=== PATIENT | female | born 1945 ===

== ENCOUNTER 2017-07-18 19:17 | Emergency (ER) | payer MEDICARE, OTHER ==
[2017-07-18 19:26] VITALS: BP 134/76
--- NOTE | 2017-07-18 20:20 | RAD ---
INDICATION: Left foot injury COMPARISON: None TECHNIQUE: AP, lateral, and oblique views were obtained. FINDINGS: There is no acute fracture. 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 There is an arcuate configuration of the tarsal navicular with findings most suggestive of a remote fracture. There is an old distal fifth metatarsal fracture There is a moderate-sized plantar calcaneal spur. There are mild hammertoe deformities. No additional findings. IMPRESSION: DEGENERATIVE AND POST TRAUMATIC CHANGES. NO ACUTE FINDINGS
--- NOTE | 2017-07-18 20:55 | ED ---
Lower Extremity - HPI Summary HPI Summary: 72F presents with left foot pain for three days. She denies any injury. She states it hurts when she walks and with deep palpations. She has history of gout normal in her first metatarsal but has not had an episode of gout since she was started on a new medication. She denies any swelling in her first metatarsal. She wonders if the gout has spread. She denies any numbness or tingling. She denies any fever or spreading redness. The area does not feel hot to touch. she states that it does not feel like gout. - History of Current Complaint Chief Complaint: EDExtremityLower Stated Complaint: LT FOOT PAIN/SWELLING Time Seen by Provider: 07/18/17 20:20 Pain Intensity: 3 - Allergies/Home Medications Allergies/Adverse Reactions: Allergies Allergy/AdvReac Type Severity Reaction Status Date / Time Allopurinol Allergy Congestion Verified 07/18/17 19:45 Indomethacin [From Indocin] Allergy Rash Verified 07/18/17 19:45 Lisinopril Allergy GI Upset Verified 07/18/17 19:45 Metoprolol Allergy Rash And Verified 07/18/17 19:46 Itching PMH/Surg Hx/FS Hx/Imm Hx Endocrine/Hematology History: Denies: Hx Anticoagulant Therapy Cardiovascular History: Reports: Hx Valvular Heart Disease Musculoskeletal History: Reports: Hx Gout - Cancer History Hx Chemotherapy: No Hx Radiation Therapy: No - Surgical History Surgery Procedure, Year, and Place: Aortic valve replacement Infectious Disease History: No Infectious Disease History: Denies: Traveled Outside the [place] in Last 30 Days - Family History Known Family History: Positive: Other - Colon [place] - Social History Alcohol Use: Occasionally Substance Use Type: Reports: None Smoking Status (MU): Former Smoker Review of Systems Negative: Fever Negative: Chest Pain Negative: Shortness Of Breath Positive: Myalgia - left foot pain All Other Systems Reviewed And Are Negative: Yes Physical Exam Triage Information Reviewed: Yes Vital Signs On Initial Exam: Initial Vitals Temp Pulse Resp BP Pulse Ox 97.9 F 77 16 134/76 99 07/18/17 19:23 07/18/17 19:23 07/18/17 19:23 07/18/17 19:23 07/18/17 19:23 Vital Signs Reviewed: Yes Appearance: Positive: Well-Appearing Skin: Positive: Warm, Dry Head/Face: Positive: Normal Head/Face Inspection Eyes: Positive: Normal, Conjunctiva Clear Respiratory/Lung Sounds: Positive: Clear to Auscultation, Breath Sounds Present Cardiovascular: Positive: Normal, RRR Musculoskeletal: Positive: Strength/ROM Intact - left foot, Other - good pulses , capillary refill<2 secs, tenderness over medial aspect of left foot near navicular bone, no erythema or wartmth to touch. Negative: Edema Left Neurological: Positive: Normal Psychiatric: Positive: Normal - Arlene Coma Scale Coma Scale Total: 15 Diagnostics - Vital Signs Vital Signs Temp Pulse Resp BP Pulse Ox 07/18/17 19:23 97.9 F 77 16 134/76 99 - Laboratory Lab Statement: Any lab studies that have been ordered have been reviewed, and results considered in the medical decision making process. - Radiology foot Xray Interpretation: Positive (See Comments) - mild first MTP joint osteoarthritis. There is an arcuate configuration of the tarsal navicular with findings most suggestive of a remote fracture. Radiology Interpretation Completed By: Radiologist Lower Extremity Course/Dx - Course Course Of Treatment: 72F presents with left foot pain for three days. She denies any injury. She states it hurts when she walks and with deep palpations. She has history of gout normal in her first metatarsal but has not had an episode of gout since she was started on a new medication. She denies any swelling in her first metatarsal. She wonders if the gout has spread. She denies any numbness or tingling. She denies any fever or spreading redness. The area does not feel hot to touch. she states that it does not feel like gout. on exam no erythema or warmth to area. tenderness over narvicular bone. xray shows remote fracture. believe pain is more likely from remote fracture rather than from gout. will have use post op shoe and follow up with primary. patient understand and agrees with plan. - Diagnoses Differential Diagnosis/HQI/PQRI: Positive: Fracture (Closed), Gout, Sprain Provider Diagnoses: Left foot pain Discharge - Discharge Plan Condition: Good Disposition: HOME Patient Education Materials: Foot Fracture in Adults (ED) Referrals: Garrett Gonzalez MD [Primary Care Provider] - Additional Instructions: It appears that you have a remote foot fracture in that area Wear post op shoe Ice, elevate Follow up with primary within 5 days Return to ED if develop any new or worsening symptoms
== END 2017-07-18 21:05 | disposition home or self-care (01) ==
LOC: ED 19:17
DX: M79.672 Pain in left foot (principal); M19.072 Primary osteoarthritis, left ankle and foot; M77.52 Other enthesopathy of left foot and ankle; Z87.891 Personal history of nicotine dependence; Z88.8 Allergy status to other drugs, medicaments and biological substances
CPT/HCPCS: 99282